=== PATIENT | female | born 1980 | race Caucasian/White ===

== ENCOUNTER 2021-05-16 22:01 | Emergency (ER) | payer OTHER ==
[~2021-05-16] VITALS: Ht 152.4 cm; Wt 68.9 kg
[2021-05-16 22:03] VITALS: BP 147/99
--- NOTE | 2021-05-16 22:06 | NUR ---
SEEN AND EXAMINED BY ERMD WITH ORDERS.
[2021-05-16] MEDS ORDERED: diphenhydrAMINE 50 MG/ML VIAL IM ONE (22:15)
[2021-05-16] MEDS ORDERED: EPINEPHrine 1 MG/ML AMP IM ONE (22:15)
[2021-05-16] MEDS ORDERED: methylPREDNISolone SS 125 MG/2 ML VIAL IM ONE (22:15)
[2021-05-16] MEDS ORDERED: FAMOTIDINE 20 MG TAB PO ONE (22:15)
--- NOTE | 2021-05-16 22:30 | NUR ---
MEDICATED PER [facility] ORDER, TOLERATED WELL.
[2021-05-16] MEDS ORDERED: FAMO-90 PO (23:27)
[2021-05-16] MEDS ORDERED: DIPH25TA53 PO (23:27)
[2021-05-16] MEDS ORDERED: PRED20TA6 PO (23:27)
[2021-05-16 23:30] VITALS: BP 23/86
--- NOTE | 2021-05-16 23:30 | NUR ---
Patient discharged with v/s stable. Written and verbal after care instructions given and explained. Patient alert, oriented and verbalized understanding of instructions. Ambulatory with steady gait. All questions addressed prior to discharge. ID band removed. Patient advised to follow up with PMD. Rx of BENADRYL ,PEPCID, PREDNISONE given. Patient educated on indication of medication including possible reaction and side effects. Opportunity to ask questions provided and answered.
== END 2021-05-16 23:30 | disposition home or self-care (01) ==
LOC: MED 22:01
DX: T78.40XA Allergy, unspecified, initial encounter (principal); X58.XXXA Exposure to other specified factors, initial encounter; Y93.89 Activity, other specified; Y92.89 Other specified places as the place of occurrence of the external cause; Y99.8 Other external cause status
CPT/HCPCS: 96372; 99284; J0171; J1200; J2930